=== PATIENT | female | born 1960 | race Caucasian/White ===

== ENCOUNTER 2021-05-27 21:11 | Emergency (ER) | payer BC, SELFPAY ==
[2021-05-27 21:15] VITALS: BP 124/80; PULSE 123; RESP 17; TEMP 37.2; O2SAT 98
[2021-05-28] VITALS (19 sets, daily range): BP systolic 116–128; BP diastolic 75–85; PULSE 107–115; RESP 18–25; TEMP 36.7–36.8; O2SAT 97–100
--- NOTE | 2021-05-28 01:25 | ED.NECK ---
HPI - Neck Pain/Injury History of Present Illness HPI Narrative: Neck pain for the past 2 weeks. Located in the upper cervical spine and radiating into the posterior scalp. Worse with head movement. Prevents her from sleeping. Saw her PCP and was started on antibiotics for bilateral ear infections. She denies any symptoms related to this, and her neck pain has not improved. Related Data Home Medications Medication Instructions Recorded Confirmed cetirizine 10 mg tablet 10 mg PO DAILY 10/01/19 04/15/21 Allergies Allergy/AdvReac Type Severity Reaction Status Date / Time erythromycin base Allergy Mild Rash Verified 05/28/21 00:06 nitrofurantoin Allergy Mild Rash Verified 05/28/21 00:06 tetracycline Allergy Mild Rash Verified 05/28/21 00:06 Review of Systems Review of Systems: All systems reviewed & are unremarkable except as noted in HPI and below Constitutional: Constitutional: Denies chills, Denies fever(s) and Denies weakness Eyes: Eyes: Reports no additional eye complaints ENT: Denies dizziness and Reports nasal congestion Cardiovascular: Cardiovascular: Denies chest pain Respiratory: Respiratory: Denies dyspnea Gastrointestinal: Gastrointestinal: Reports no additional gastrointestinal complaints Genitourinary: Genitourinary: Reports no additional female genitourinary complaints Neurologic: Reports headache(s), Denies numbness and Denies weakness [facility] Family History Family History Mother Patient's mother is in good health Father Patient's father is in good health Hypertension Grandparent Hypertension Social History Social History Smoking status: Current every day smoker Second hand tobacco smoke exposure: No Smoking end date: 10/21/09 Alcohol intake: current Exam Const: General: no acute distress and alert Orientation/consciousness: patient oriented x3 HENMT: Head: normal to inspection Eyes: Pupils: Equal, round and reactive pupils present EOM: EOMs intact bilaterally Neck: Neck: normal visual inspection and no lymphadenopathy Resp: Effort & Inspection: normal respiratory effort Auscultation: clear to auscultation bilaterally, no rales, no rhonchi and no wheezes Cardio: Jugular venous distension: no JVD Rate: regular rate Rhythm: regular rhythm Heart sounds: no murmurs Back/Spine/Pelvis: Cervical Spine: cervical muscular tenderness, pain with cervical ROM and No Cervical spine tenderness Skin: General skin exam: normal color Neuro: General: patient oriented x3, moves all extremities and CN's II-XI intact bilaterally Speech: normal speech Gait exam (Neuro): Normal gait present Extrem: General: no edema Psych: Appearance: well kempt Affect: normal affect Course Vital Signs Vital signs: Vital Signs Temperature 37.2 C 05/27/21 21:15 Pulse Rate 123 H 05/27/21 21:15 Respiratory Rate 17 05/27/21 21:15 Blood Pressure 124/80 05/27/21 21:15 Pulse Oximetry 98 05/27/21 21:15 Temperature 36.8 C 05/28/21 03:24 Pulse Rate 109 H 05/28/21 03:24 Respiratory Rate 18 05/28/21 03:24 Blood Pressure 116/75 05/28/21 03:24 Pulse Oximetry 98 05/28/21 03:24 MDM - Neck Pain/Injury MDM Narrative Medical decision making narrative: Pain significantly improved after treatment. Seems to be myofascial. Medical Records Attestation: I reviewed the patient's medical records. Discharge Plan Discharge Clinical Impression: Cervical muscle strain Patient Disposition: Home, Self-Care Condition: Stable Instructions: Cervical Strain (ED) Prescriptions: New diazepam [Valium] 5 mg tablet 5 mg PO BID PRN (Reason: muscle spasm) Qty: 6 RF: 0 No Action alprazolam 0.5 mg tablet 0.5 mg PO DAILY Qty: 30 RF: 0 cetirizine [Zyrtec] 10 mg tablet 10 mg PO DAILY RF: 0 ergocalciferol (vitamin D2) 1,250 mcg (50,000 unit) c
[2021-05-28] MEDS: diazePAM INJ (*CRX) 10 MG/2 ML SYRINGE 5 MG IM (01:31)
[2021-05-28] MEDS: KETOROLAC (*BKC) 60 MG/2 ML VIAL IM (01:32)
[2021-05-28] MEDS: DEXAMETHASONE SOD PHOS INJ 4 MG/ML VIAL 10 MG IM (01:32)
== END 2021-05-28 03:25 | disposition home or self-care (01) ==
PROVIDERS: Emergency Provider Emergency Medicine; PCP Physician Assistant
DX: S16.1XXA Strain of muscle, fascia and tendon at neck level, initial encounter (principal); Z87.891 Personal history of nicotine dependence; X58.XXXA Exposure to other specified factors, initial encounter
CPT/HCPCS: 96372; 99284; J1100; J1885; J3360

== ENCOUNTER → 2021-07-27 16:28 | Outpatient (CLI) | payer BC, SELFPAY ==
--- NOTE | ~2021-07-27 | MM_ITS ---
EXAMINATION: MM scrn patel implant BI w sky HISTORY: Screening mammogram TECHNIQUE: Craniocaudal and mediolateral oblique 3-D tomosynthesis images with implant displacement a nd synthetic 2-D images were generated. Craniocaudal and mediolateral oblique views of the breasts wi thout implant displacement were obtained using full field digital mammography. CAD analysis was submi tted and interpreted. COMPARISON: 06/10/2012, 01/01/2011, 08/30/2009 BREAST PARENCHYMAL COMPOSITION: The breasts are heterogeneously dense, which may obscure small masses . FINDINGS: Scattered benign-appearing calcifications are present. There is no evidence of suspicious m ass, calcification, or architectural distortion to suggest malignancy in either breast. There has bee n no suspicious interval change. IMPRESSION: 1. No mammographic evidence of malignancy. 2. Recommend routine screening mammography in one year. BI-RADS Category 2: Benign finding(s). Reviewed, dictated and finalized at location A.
== END ==
PROVIDERS: PCP Physician Assistant; Visit Provider Physician Assistant
DX: Z12.31 Encounter for screening mammogram for malignant neoplasm of breast (principal)
CPT/HCPCS: 77063; 77067

== ENCOUNTER → 2022-06-20 11:14 | Outpatient (CLI) | payer BC, SELFPAY ==
--- NOTE | ~2022-06-20 | CT_ITS ---
EXAMINATION: CT lung screening DATE: 06/20/2022 12:04 INDICATION: Hx of tobacco use TECHNIQUE: Computed tomography (CT) of the chest was performed without intravenous contrast. Addition al 3D reconstructions utilizing coronal maximum intensity projection (MIP) were performed. Automated exposure control and iterative reconstruction technique were employed. The dose-length product was 49 .21 mGy-cm. COMPARISON: None FINDINGS: Thin linear band of discoid atelectasis/scarring in the posterior left lower lobe. Slightly more laterally there is a 4 mm subpleural left lower lobe nodule. 2 mm nodule in the anterio r right lower lobe near the major fissure. 2 mm calcified nodule in the superior segment of the left lower lobe consistent with old granulomatous disease. No pneumonia, pulmonary edema, pleural effusion or pneumothorax. Heart size is normal. No pericardial effusion. Thoracic aorta is normal in caliber. No pathologically enlarged thoracic lymphadenopathy. Bilateral breast implants. Moderate thoracic sp ondylosis. IMPRESSION: 1. Lung-RADS category 2: Benign appearance or behavior. Continue annual screening with noncontrast lo w-dose chest CT in 12 months. Reviewed, dictated and finalized at location A. IMPRESSION: 1. Lung-RADS category 2: Benign appearance or behavior. Continue annual screeni ng with noncontrast low-dose chest CT in 12 months.
== END ==
PROVIDERS: PCP Physician Assistant; Visit Provider Physician Assistant
DX: Z12.2 Encounter for screening for malignant neoplasm of respiratory organs (principal); Z87.891 Personal history of nicotine dependence
CPT/HCPCS: 71271

== ENCOUNTER 2022-07-02 16:14 | Emergency (ER) | payer BC, SELFPAY ==
[2022-07-02 16:25] VITALS: BP 133/108; PULSE 94; RESP 16; TEMP 37.1; O2SAT 99
--- NOTE | 2022-07-02 16:33 | ED.SKABFB ---
HPI - Skin/Abscess/Foreign Bdy General Chief complaint: Skin/Abscess/Foreign Body Stated complaint: Left Eye Pain Time Seen by Provider: 07/02/22 16:34 Source: patient and RN notes reviewed Mode of arrival: ambulatory Limitations: no limitations History of Present Illness HPI narrative: 61-year-old female presents to the [facility] with left medial eye swelling, tenderness. Patient states its been there for couple of days and it is getting little worse. Noticed some drainage. Denies any change in vision. Denies any fevers. Has been applying ice and heat to the area No trauma to the eye. Related Data Home Medications Medication Instructions Recorded Confirmed cetirizine 10 mg tablet (Zyrtec) 10 mg PO DAILY 10/01/19 07/02/22 Allergies Allergy/AdvReac Type Severity Reaction Status Date / Time erythromycin base Allergy Mild Rash Verified 07/02/22 16:33 nitrofurantoin Allergy Mild Rash Verified 07/02/22 16:33 tetracycline Allergy Mild Rash Verified 07/02/22 16:33 Review of Systems Review of Systems: All systems reviewed & are unremarkable except as noted in HPI and below Constitutional: Constitutional: Reports no additional constitutional complaints, Denies chills and Denies fever(s) Eyes: Eyes: Reports as per HPI, Denies change in vision and Denies photophobia ENT: Reports system reviewed and no additional complaints, except as documented Cardiovascular: Cardiovascular: Reports no additional cardiovascular complaints Respiratory: Respiratory: Reports no additional respiratory complaints Gastrointestinal: Gastrointestinal: Reports no additional gastrointestinal complaints Musculoskeletal: Musculoskeletal: Reports no additional musculoskeletal complaints Integumentary/Breasts: Skin/Breast: Reports system reviewed and no additional complaints, except as docu Neurologic: Reports system reviewed and no additional complaints, except as documented Psychiatric: Psychiatric: Reports no additional psychiatric complaints Allergic/Immunologic: Allergic/Immunologic: Reports no additional allergic/immunologic complaints [facility] Family History Family History Mother Patient's mother is in good health Father Patient's father is in good health Hypertension Grandparent Hypertension Social History Social History Smoking status: Current every day smoker Second hand tobacco smoke exposure: No Smoking end date: 10/21/09 Alcohol intake: current Comments At the time of my signature, I reviewed and agree with the nursing past medical, surgical, social, and family history. There is no relevant family history pertinent to the patient complaint. Exam Const: General: healthy appearing, no acute distress and alert Nutritional Appearance: well nourished Orientation/consciousness: patient oriented x3 Limitations: no limitations HENMT: Head: normal to inspection Ears: external ears normal, TM's normal bilaterally and EAC's normal General nose exam: Normal external nose present and Normal nares present Face and sinus: normal facial exam Mouth: Yes Normal oral and palatal mucosa present, Yes lip normal and Yes moist mucous membranes Throat: posterior oropharynx normal Eyes: General: appearance normal, both eyes and all related structures Visual Parsons: normal visual parsons by confrontation Alignment and Position: alignment normal and position normal Eyelids: eyelid abnormality left upper eyelid erythema (Medial aspect, tear duct), swelling and tenderness Conjunctivae: conjunctivae normal Pupils: Equal, round and reactive pupils present Eyes/upper lids images: 1. Redness, swelling, tenderness. Green drainage noted. Collected culture. Drainage noted from tear duct. Neck: Neck: normal visual inspection, no lymphadenopathy and no meningeal signs Chest: Chest palpation & inspection: normal inspection
== END 2022-07-02 16:50 | disposition home or self-care (01) ==
PROVIDERS: Emergency Provider Nurse Practitioner; PCP Physician Assistant
DX: H04.552 Acquired stenosis of left nasolacrimal duct (principal); H04.302 Unspecified dacryocystitis of left lacrimal passage; Z87.891 Personal history of nicotine dependence
CPT/HCPCS: 87070; 87075; 87076; 87205; 99213; G0463

== ENCOUNTER 2025-01-18 08:02 | Outpatient (CLI) | payer OTHER, SELFPAY ==
--- NOTE | ~2025-01-18 | DEXA_ITS ---
Bone Density Report Name: ARVIND ANAYA Age: 64 Sex: Female Ethnicity: White Date of : 1960 Indication: postmenopausal; screening for osteoporosis; height loss; hysterectomy; Referring Provider: VENITA, DUGLAS Study: Bone densitometry was performed. Exam Date: January 18, 2025 Accession number: [id number] Bone Density: Region BMD T-score Z-score Classification AP Spine(L1-L4) 1.030 -0.2 1.7 Normal Femoral Neck (Left) 0.726 -1.1 0.5 Osteopenia Total Hip (Left) 0.859 -0.7 0.6 Normal Femoral Neck (Right) 0.712 -1.2 0.3 Osteopenia Total Hip (Right) 0.892 -0.4 0.9 Normal Total Hip Mean 0.875 -0.6 0.8 Normal World Health Organization criteria for BMD impression classify patients as: Normal (T-score at or above -1.0), Osteopenia (T-score between -1.0 and -2.5), or Osteoporosis (T-score at or below -2.5). 10-year Fracture Risk(1): Major Osteoporotic Fracture 8.7% Hip Fracture 0.8% Reported Risk Factors: [place] (), Neck BMD=0.712, BMI=25.5 (1) FRAX(R) Version 3.08. Fracture probability calculated for an untreated patient. Fracture probability may be lower if the patient has received treatment. Clinical Information Provided by Patient: Has the following medical conditions: Hysterectomy Patient maximum height was 66 Menopause Age: 33 No regular weight bearing exercise Drinks caffeinated beverages Onset of menses at age 14 Number of children 2 Impression: The patient has low bone mass, based on the Right Femoral Neck T-score. The patient has an estimated ten-year risk of hip fracture of 0.8% and an estimated ten-year risk of major fracture of 8.7%, based on the WHO FRAX algorithm. Discussion: BONE DENSITY IS LOW AT ONE OR MORE SKELETAL SITES. This patient's lowest T-score is low at one or more skeletal sites. It meets the World Health Organization's (WHO) criteria for ?low bone mass? (T-score between -1.0 and -2.5). The patient's 10-year risk of fracture as calculated by FRAX is less than the threshold where pharmacological therapy is recommended by the National Osteoporosis Foundation (NOF). However, all treatment decisions require clinical judgment and consideration of individual patient factors, including patient preferences, comorbidities, previous drug use, risk factors not captured in the FRAX model (e.g., frailty, falls, vitamin D deficiency, increased bone turnover, interval significant decline in bone density) and possible under or overestimation of fracture risk by FRAX. The patient should follow a healthful lifestyle (good nutrition with adequate calcium and vitamin D, and appropriate weight-bearing exercise). Follow-Up: Consider repeating this study in 2 to 3 years to reassess this patient's status, or sooner if there is some new clinical indication. Reported by: VANDANA on 01/18/2025 8:42:00 AM. Reviewed, dictated and finalized at location [facility]
--- NOTE | ~2025-01-18 | MM_ITS ---
EXAMINATION: MM scrn patel implant BI w sky HISTORY: Screening mammogram TECHNIQUE: Craniocaudal and mediolateral oblique 3-D tomosynthesis images with implant displacement a nd synthetic 2-D images were generated. Craniocaudal and mediolateral oblique views of the breasts wi thout implant displacement were obtained using full field digital mammography. CAD analysis was submi tted and interpreted. COMPARISON: 07/27/2021 BREAST PARENCHYMAL COMPOSITION: Dense: The breasts are heterogeneously dense, which may obscure small masses FINDINGS: Stable clustered benign-appearing right breast calcifications lower inner quadrant, likely skin calcifications. There is no evidence of suspicious mass, calcification, or architectural distort ion to suggest malignancy in either breast. There has been no suspicious interval change. IMPRESSION: 1. No mammographic evidence of malignancy. 2. Recommend routine screening mammography in one year. BI-RADS Category 2: Benign finding(s). Reviewed, dictated and finalized at location A.
--- OUTSIDE RECORDS SUMMARY | 2025-01-18 08:09 | XMS_ITS | Encounter Summary ---
Author Organization [facility] Healthcare Address [address] [place] [id number] Care Team Providers Care Vp Purchasing Name Role Phone Prerna Tan Primary Care Provider [phone]- [phone] Reason for Visit * Reason Onset Date Comments Dizziness 11/18/2024 Encounter Details Date Type Department Care Team (Late st Contact Info) Description 11/18/2024 Nurse Triage [facility] Medical Group Family Medicine [address] [place] [address] Prerna Tan PA [address] [place] [address] Social History Tobacco Use Types Packs/Day Years Used Date Smoking Tobacco: Every Day Cigarettes 0.4 1 Smokeless Tobacco: Never AUDIT-C Answer Date Recorded Q1: How often do you have a drink containing alc ohol? Monthly or less 05/16/2023 Q2: How many drinks containi ng alcohol do you have on a typical day when you are drinking? 1 or 2 05/16/2023 Q3: How often do you have si x or more drinks on one occasion? Less than monthly 05/16/2023 PHQ-2 Answer Date Recorded PHQ-2 Total Score (If total score is 3 or more points, staff should administer the PHQ-9) 0 07/01/2024 PHQ-9 Answer Date Recorded PHQ-9 Total Score 13 02/05/2024 Comments Unknown Sex and Gender Information Value Date Recorded Sex Assigned at Not on file Legal Sex Female 12:21 AM SERVICES EXECUTIVE Gender Identity Not on file Sexual Orientation Not on file documented as of this encounter Miscellaneous Notes * Telephone Encounter - Nadege Penny LPN - 11/18/2024 1:55 PM SERVICES EXECUTIVE Called and spoke to pt. Pt stated that she has been out of Cymbalta 30mg for 2-3 weeks because she had not received notification from the pharmacy that it was filled. She stated she has still been taking the 60mg but she is almost out. Refill of both doses sent. Advised pt that if she is almost outto either call pharmacy or PCP office as the Cymbalta is a medication that needs tapered and she clifford that dosage because the 60mg by itself was not effective. Pt voiced understanding. Informed pt that both medications were sent to the pharmacy and she can contact them for tile picker. Pt is already rescheduled and understands that symptoms are most like from missing Cymbalta doses. ICES EXECUTIVE * Telephone Encounter - Sheyla Lopez RN - 11/18/2024 8:14 AM SERVICES EXECUTIVE Reason for Disposition Lightheadedness (dizziness) present now, after 2 hours of rest and fluids Protocols used: [id number] Pt reports vertigo today. She had vertigo for 6 days then none yesterday and vertigo returned today. She also reports some sinus congestion. She denies dyspnea, headache, weakness, numbness. Pt reports she takes meclizine tid with no relief. Pt has been out of her Cymbalta 30 mg for 2-3 weeks. Per chart scrip sent 10/19. Advised pt of Kayce maneuver. Disposition per guideline: Care advice/education/call back instruction given: appt made first available (12/28/24) please advise pt if any sooner appts or cancellations, further advice Call back # [phone] (mobile) Encounter routed to PCP ICES EXECUTIVE * Telephone Encounter - Sheyla Lopez RN - 11/18/2024 8:03 AM SERVICES EXECUTIVE Regarding: vertigo ----- Message from Araseli Jackson sent at 11/18/2024 8:03 AM SERVICES EXECUTIVE ----- Symptom Based Call Chief Complaint(s): vertigo Duration: this morning What type of symptom(s) is the patient experiencing? Red Flag. Is the patient concerned they are experiencing a medical emergency requiring an ambulance? No Additional Comments: Patient has been taking meclizine. Does message need to be routed? Yes-Action Needed ICES EXECUTIVE documented in this encounter Plan of Treatment Not on file documented as of this encounter Visit Diagnoses Not on filedocumented in this encounter Care Teams Vp Purchasing Relationship Specialty Start Date End Date Prerna Tan PA [address] [address] PCP - General Internal Medicine 05/24/21 documented as of this encounter
--- OUTSIDE RECORDS SUMMARY | 2025-01-18 08:09 | XMS_ITS | Clinical Summary ---
Author Organization [facility] Address [address] [facility] [place] [address] Care Team Providers Care Carpenters Supervisor Name Role Phone Jesse Chairez DO Primary Care Provider Source Comments [facility],non-owned Affiliates and Associated Physician Practices is amultiple site organization consisting of ambulatory clinics and hospital sitesin [place], [place], [place] and [place]. This disclosure is being madepursuant to the Care Everywhere program and may not contain all information available regarding this patient. Last updated 18.[facility] Allergies Active Allergy Reactions Criticality Noted Date Comments Erythromycin Rash Low 12/19/2011 Tetracycline Rash Low 12/19/2011 Medications * Be aware that medications may not be up to date on this document. Alwaysverify current medications with the patient. Medication Sig Dispensed Refills Start Date End Date Status ALPRAZolam (XANAX) 0.5 MG tablet Take 0.5 mg by mouth 3 times daily as needed. Active estradiol (ESTRACE) 1 MG tablet Take 1 mg by mouth once daily. Active buPROPion XL 24hr (WELLBUTRIN-XL) 300 MG tablet Take 300 mg by mouth every morning. Active omeprazole (PRILOSEC) 20 MG capsule Take 20 mg by mouth daily before breakfast. Active B Complex Vitamins (VITAMIN B COMPLEX PO) Take 1 Tab by mouth once daily. Active pentosan polysulfate sodium (ELMIRON) 100 MG capsule Take 1 Cap by mouth 3 times daily. Take two every morning and take one every evening. 90 Cap 2 12/25/2011 Active Additional Information Patient not taking.Reported on 02/17/2019 phenazopyridine (PYRIDIUM) 100 MG tablet Take 1 Tab by mouth 3 times daily with meals. 90 Tab 2 12/25/2011 Active Additional Information Patient not taking.Reported on 02/17/2019 Active Problems No known active problems Family History Medical History Relation Name Comments CAD (Coronary Artery Disease) Paternal Grandfather Relation Name Status Comments Paternal Grandfather Social History Tobacco Use Types Packs/Day Years Used Date Smoking Tobacco: Former Cigarettes Q uit: 10/30/2009 Smokeless Tobacco: Never Tobacco Cessation:Counseling Given: No Alcohol Use Standard Drinks/Week Comments Yes 0 (1 standard drink = 0.6 oz pur e alcohol) socially Sex and Gender Information Value Date Recorded Sex Assigned at Not on file Gender Identity Not on file Sexual Orientation Not on file Last Filed Vital Signs Vital Sign Reading Time Taken Comments Blood Pressure 125/86 02/17/2019 10:03 AM CDT Pulse 80 02/17/2019 10:03 AM CDT Temperature 36.3 C (97.3 F) 02/17/2019 10:03 AM CDT Respiratory Rate 16 02/17/2019 10:0 3 AM CDT Oxygen Saturation 99% 02/17/2019 10: 03 AM CDT Inhaled Oxygen Concentration - - Weight 72.9 kg (160 lb 12.8 oz) 019 10:03 AM CDT Height 167.6 cm (5' 6 ) 02/17/2019 10:0 3 AM CDT Body Mass Index 25.95 02/17/2019 10:03 AM CDT Plan of Treatment Health Maintenance Due Date Last Done Comments BONE DENSITY TESTING 1960 COLOGUARD (AGES 45-75) - COL ON CA SCREENING 1958 COLON MONITORING 1958 COLONOSCOPY - COLON CA SCREENING 1958 CT COLONOGRAPHY - COLON CA SCREENING 1958 Colorectal Cancer Screening 1958 FIT - COLON CA SCREENING 1958 FLEX SIG - COLON CA SCREENING 1958 LIPID TESTING 1958 MAMMOGRAM 1958 HEPATITIS C SCREENING 09/14/1976 DTAP/TDAP/TD VACCINES (1 - Tdap) 1977 PNEUMOCOCCAL VACCINE 50+ (1 of 1 - PCV) 2008 ZOSTER VACCINE (1 of 2) 2008 SCREENING FOR DIABETES 02/17/2019 COVID-19 VACCINE (1 - 2023-2 5 season) 2024 INFLUENZA VACCINE (#1) 2024 DEPRESSION SCREENING 10/21/2024 Respiratory Syncytial Virus (RSV) Vaccine Pt: or over 60 yrs (1 - 1-dose 75+ series) 2033 HEPATITIS B VACCINE Aged Out No longe r eligible based on patient's age to complete this topic HIB VACCINE Aged Out No longer eligi ble based on patient's age to complete this topic HPV VACCINE Aged Out No longer eligi ble based on patient's age to complete this topic MENINGOCOCCAL (Group B) VACC INE SHARED DECISION-MAKING Aged Out No longer eligibl e based on patient's age to complete this topic MENINGOCOCCAL GROUPS A/C/Y/W VACCINE Aged Out No longer eligible b ased on patient's age to complete this topic Care Teams Carpenters Supervisor Relationship Specialty Start Date End Date Jesse Chairez DO [address] [facility] [address] [place] [address] PCP - General 02/03/19
--- OUTSIDE RECORDS SUMMARY | 2025-01-18 08:09 | XMS_ITS | Referral Summary ---
Author Organization [facility] [address] [place] [address] [place] [phone] Care Team Providers Care Corporate Staff Accountant Name Role Phone Prerna Tan Primary Care Provider [phone]- [phone] Encounters Date Type Department Care Team Description 01/15/2025 7:30 AM CDT Office Visit [address] [place] [phone] Prerna Tan PA BMI 25.0-25.9,adult (Primary Dx); Anxiety; Chronic obstructive pulmonary disease, unspecified COPD type (HCC); Foot pain, right 12/21/2024 Orders Only [address] [place] [phone] Prerna Tan PA 12/18/2024 Orders Only [address] [place] [phone] Prerna Tan PA CHONG (dyspnea on exertion) (Primary Dx) 12/11/[address] [place] [phone] Prerna Tan PA Medical Question/Miscellaneou s 11/18/[address] [place] [phone] Prerna Tan PA 11/18/2024 Telephone [facility] [address] [place] [phone] Prerna Tan PA 11/18/2024 Nurse Triage [facility] [address] [place] [phone] Prerna Tan PA from Last 3 Months Allergies Active Allergy Reactions Criticality Noted Date Comments Erythromycin Rash Medium 12/19/2011 Tetracaine Hcl Unknown 05/24/2021 Tetracycline Rash Medium 12/19/2011 Medications loratadine (CLARITIN) 10 mg tablet 1 tablet (10 mg total) daily Active montelukast (SINGULAIR) 10 mg tablet Take 1 tablet (10 mg total) by mouth nightly 90 tablet 1 07/01/20 24 Active Additional Information Patient not taking.Reported on 01/15/2025 valACYclovir (VALTREX) 1 gram tablet Take 2 tabs (2000 mg) 2 times a days for 1 day. 30 tablet 1 07/01/20 24 Active ALPRAZolam (XANAX) 0.25 mg tablet Take 1 tablet (0.25 mg total) by mouth nightly as needed for anxiety 15 tablet 07/01/20 24 Active meclizine (ANTIVERT) 12.5 mg tabletIndicati ons:Vertigo Take 1 tablet (12.5 mg total) by mouth 3 (three) times a day as needed for dizziness 60 tablet 08/14/[address] (CYMBALTA) 60 mg capsuleIndicat ions:Anxiety Take ONE 60mg tab with ONE 30mg tab to make 90mg daily. 90 capsule 1 01/16/[address] (CYMBALTA) 30 mg capsuleIndicat ions:Anxiety with Depression Take ONE 30mg tab with ONE 60mg tab for a total of 90mg daily. 90 capsule 1 01/16/20 25 Active rosuvastatin (CRESTOR) 10 mg tablet Take 1 tablet (10 mg total) by mouth daily 90 tablet 2 01/16/20 25 Active ARIPiprazole (ABILIFY) 5 mg tabletIndicati ons:Anxiety Take 1 tablet (5 mg total) by mouth daily 90 tablet 1 01/16/20 25 Active budesonide-gly copyr-formoter ol (BREZTRI) 160-9-4.8 mcg/actuation inhalerIndicat ions:Chronic obstructive pulmonary disease, unspecified COPD type (HCC) Inhale 2 puffs 2 (two) times a day 5.9 g 1 01/16/20 25 Active omeprazole (PriLOSEC) 20 mg capsule Take 1 capsule (20 mg total) by mouth daily before breakfast 90 capsule 1 01/16/20 25 Active omeprazole (PriLOSEC) 20 mg capsule Take 1 capsule (20 mg total) by mouth daily before breakfast 90 capsule 1 02/05/20 24 025 Discontinued(R eorder) ARIPiprazole (ABILIFY) 5 mg tabletIndicati ons:Anxiety Take 1 tablet (5 mg total) by mouth daily 90 tablet 1 07/01/20 24 025 Discontinued(R eorder) albuterol-bude sonide (Airsupra) 90-80 mcg/actuation HFA aerosol inhaler Inhale 2 puffs every 4 (four) hours as needed (as needed for wheezing) 10.7 g 07/05/20 24 025 Discontinued budesonide-gly copyr-formoter ol (BREZTRI) 160-9-4.8 mcg/actuation inhalerIndicat ions:Chronic obstructive pulmonary disease, unspecified COPD type (HCC) Inhale 2 puffs 2 (two) times a day 5.9 g 1 08/14/20 24 025 Discontinued(R eorder) DULoxetine DR (CYMBALTA) 60 mg capsuleIndicat ions:Anxiety Take ONE 60mg tab with ONE 30mg tab to make 90mg daily. 90 capsule 1 11/18/19 025 Discontinued(R eorder) DULoxetine DR (CYMBALTA) 30 mg capsuleIndicat ions:Anxiety with Depression Take ONE 30mg tab with ONE 60mg tab for a total of 90mg daily. 90 capsule 1 11/18/19 25 025 Discontinued(R eorder) rosuvastatin (CRESTOR) 10 mg tablet 12/08/19 25 03/28/2 025 Discontinued(R eorder) Active Problems Problem Noted Date Diagnosed Date BMI 25.0-25.9,adult 01/15/2025 Assessment & Plan (01/15/2025 7:39 AM CDT): BMI Follow-up includes: Discussed diet and exercising counseling. Need for vaccination 07/05/2024 Assessment & Plan (07/05/2024 9:21 PM CDT): Pneumonia vaccine updated in the office today Annual physical exam 07/05/2024 Assessment & Plan (07/05/2024 9:22 PM CDT): Encouraged healthy lifestyle, good nutrition and exercise. Encouraged Calcium and Vitamin D and weight bearing exercise for bone health. Reviewed immunizations Reviewed age appropirate screenings. Reactive airway disease 07/05/2024 Assessment & Plan (07/05/2024 9:15 PM CDT): This is a significant, separately identifiable problem that was evaluated and managed on the same day as the wellness exam Patient has increased cough and congestion/COPD type symptoms as she has increased allergy symptoms. Continue with Mucinex antihistamine Flonase. Add Singulair and air supra. Sample of air supra provided if she would start to note increased color in the congestion and production of cough she is to call for possible antibiotic Menopause 02/18/2024 Assessment & Plan (02/18/2024 10:04 PM CDT): Check DEXA Colon cancer screening 02/18/2024 Assessment & Plan (07/05/2024 9:21 PM CDT): Patient is scheduled for screening colonoscopy in September of [address] Anderson Assessment & Plan (02/18/2024 10:07 PM CDT): Discussed colon cancer screening options. Last colonoscopy was in July of [address] Gonzales. She is due to repeat would prefer to have it done by Dr. Anderson. Referral be placed Mixed hyperlipidemia 05/18/2023 Assessment & Plan (07/05/2024 9:20 PM CDT): Encouraged patient to follow low fat/low chol diet like the Mediterranean diet. Increase good fats in the diet. Increase exercise. Monitor labs as needed. Assessment & Plan (02/18/2024 10:04 PM CDT): Encouraged patient to follow low fat/low chol diet like the Mediterranean diet. Increase good fats in the diet. Increase exercise. Monitor labs as needed. Assessment & Plan (05/18/2023 8:09 PM CDT): Encouraged patient to follow low fat/low chol diet like the Mediterranean diet. Increase good fats in the diet. Increase exercise. Monitor labs as needed. Cigarette smoker 04/20/2023 Assessment & Plan (07/05/2024 9:18 PM CDT): Encouraged smoking cessation. Discussed 3 minutes. Reviewed options for assistance with cessation. 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 Pt declines assistance at this time but may contact the office at anytime for further help as they desire. Assessment & Plan (02/18/2024 10:01 PM CDT): Encouraged smoking cessation. Discussed 3 minutes. Reviewed options for assistance with cessation. Reviewed retirement sequela associated with smoking. Pt declines assistance at this time but may contact the office at anytime for further help as they desire. Patient is past due for her low-dose CT. Will place the order Discussed with patient Lung Cancer screening options with the patient. Encouraged LowDose CT Patient is between 53 - 75 yo. Is a current smoker or quit in the last 15 years. Has a 30+pack years smoking history. Is currently without any signs or symptoms of lung cancer. Is willing to consider curative lung surgery if needed. G0296 Assessment & Plan (05/18/2023 8:09 PM CDT): Encouraged smoking cessation. Discussed 3 minutes. Reviewed options for assistance with cessation. Reviewed retirement sequela associated with smoking. Pt declines assistance at this time but may contact the office at anytime for further help as they desire. Assessment & Plan (04/20/2023 12:03 AM CDT): Encouraged smoking cessation. Discussed 3 minutes. Reviewed options for assistance with cessation. Reviewed retirement sequela associated with smoking. Pt declines assistance at this time but may contact the office at anytime for further help as they desire. Low-dose CT due after 06/20 Bilateral foot pain 04/20/2023 Assessment & Plan (02/18/2024 10:03 PM CDT): Persistent bilateral foot pain. Has had multiple surgeries to her foot. She is concerned it may be neuropathic pain but I am concerned it is more mechanical. Will make a referral to Dr. Abarca and Michele for further evaluation. If they clear it may further workup neuropathic pain but on exam with microfilament she has full sensation through all of her feet and toes. Assessment & Plan (04/20/2023 12:04 AM CDT): Patient is experiencing bilateral foot pain. Has had multiple surgeries and noting increased pain with walking. She is ready to see a surgeon for an additional opinion. Will make referral to ankle addictions recovery specialist Anxiety 04/20/2023 Assessment & Plan (07/05/2024 9:21 PM CDT): Symptoms stable with Cymbalta 90 and Abilify 5 Assessment & Plan (04/12/2024 9:37 PM CDT): Patient has having breakthrough symptoms. Has tolerated the Cymbalta 60 Abilify 5 without problems. Will add Cymbalta 30 mg for a total of 90 daily. Follow-up in 6-8 weeks to reassess or sooner for any other problems or concerns Assessment & Plan (02/18/2024 10:04 PM CDT): This is a significant, separately identifiable problem that was evaluated and managed on the same day as the wellness exam Persistent anxiety symptoms. She continues to have increased stressors at work. Taking 0.25 of Xanax HS to sleep. Continue Cymbalta 60. Will add Abilify 5 mg. Reviewed risks benefits alternatives side effects and proper use. Follow-up in 4-6 weeks to reassess or sooner for any other problems or concerns Assessment & Plan (05/18/2023 8:10 PM CDT): Patient sees significant improvement with the Cymbalta. She just increase to the 60. She is tolerating without side effects. Follow-up in the couple of months to reassess. If she is any problems or concerns she is to call sooner Assessment & Plan (04/20/2023 12:06 AM CDT): This is a significant, separately identifiable problem that was evaluated and managed on the same day as the wellness exam Patient has ongoing anxiety. Has used Xanax p.r.n. in the past but has daily symptoms. Discussed preventive medications including their risks benefits alternatives side effects and proper use. He is having a lot of chronic pain with her feet so agreed upon starting Cymbalta 30 mg 1 daily. Will have her follow-up in 4 weeks to reassess and increase at that time if tolerating well. Vitamin D deficiency 08/20/2021 Assessment & Plan (02/18/2024 9:50 PM CDT): Supplement Assessment & Plan (04/20/2023 12:02 AM CDT): Continue supplementation Assessment & Plan (04/15/2022 8:58 PM CDT): supplement Assessment & Plan (08/20/2021 7:07 PM CDT): supplement Breast cancer screening by mammogram 05/28/2021 Assessment & Plan (07/05/2024 9:18 PM CDT): Mammogram scheduled this month at [facility]. Patient has order Assessment & Plan (02/18/2024 10:00 PM CDT): Mammogram order provided Assessment & Plan (04/15/2022 8:57 PM CDT): Mammogram order provided Assessment & Plan (05/28/2021 9:54 PM CDT): Mammogram order provided Gastroesophageal reflux disease without esophagi tis 05/28/2021 Assessment & Plan (07/05/2024 9:18 PM CDT): Continue omeprazole as needed Assessment & Plan (02/18/2024 10:00 PM CDT): Discussed GERD at length including anatomy, behavioral changes (anti-reflux maneuvers, avoid acidic foods like oranges and tomatoes., avoidance of spicy foods, avoid eating 3-4 hours before bed, elevation of the head of the bed), weight loss and medication options for treatment. Followup if sxs worsen or has hematochezia or hematemeis. Continue omeprazole Assessment & Plan (04/15/2022 8:57 PM CDT): Continue PPI Assessment & Plan (08/20/2021 7:02 PM CDT): Continue omeprazole Assessment & Plan (05/28/2021 9:55 PM CDT): Continue PPI Seasonal allergies 05/28/2021 Assessment & Plan (04/15/2022 8:57 PM CDT): Continue claritin prn Grief 05/28/2021 Assessment & Plan (05/28/2021 10:00 PM CDT): Discussed grief and the steps of grief. She declines medication at this point. Discussed counseling. She may consider. States she has good days and bad days and wants to see if things improve with bp treatment and or if labs show much. Call if has increased sxs or if she gets stuck Tension type headache 05/28/2021 Assessment & Plan (05/28/2021 10:01 PM CDT): Patient has tension MCCAIN type sxs but could also be related to bp. Will treat bp. Try flexeril hs to see if helps with sleep/muscular neck tightness and followup in a few weeks to reassess Resolved Problems Problem Noted Date Diagnosed Date Resolved Date BMI 23.0-23.9, adult 07/01/2024 025 Assessment & Plan (07/01/2024 8:59 AM CDT): Weight/BMI is in healthy range. Continue healthy lifestyle to maintain. Welcome to Medicare preventive visit 02/18/2024 07/05/2024 Assessment & Plan (02/18/2024 10:04 PM CDT): Encouraged healthy lifestyle, good nutrition and exercise. Encouraged Calcium and Vitamin D and weight bearing exercise for bone health. Reviewed immunizations. Reviewed age appropirate screenings. Medicare Wellness Documentation is completed within the chart Need for vaccination for Strep pneumoniae 02/18/2024 07/05/2024 Assessment & Plan (02/18/2024 10:04 PM CDT): Pneumonia vaccine updated in the office today BMI 24.0-24.9, adult 02/05/2024 024 Assessment & Plan (04/12/2024 9:37 PM CDT): Weight/BMI is in healthy range. Continue healthy lifestyle to maintain. Assessment & Plan (02/05/2024 7:49 AM CDT): Discussed the patient's BMI. The BMI is above average. BMI management plan is completed. BMI Follow-up includes: nutrition counseling, exercise counseling and education provided. BMI 21.0-21.9, adult 05/16/2023 024 Assessment & Plan (05/16/2023 11:25 AM CDT): Weight/BMI is in healthy range. Continue healthy lifestyle to maintain. Lipid screening 04/20/2023 05/18/2023 Assessment & Plan (04/20/2023 12:02 AM CDT): Check labs Diabetes mellitus screening 04/20/2023 05/18/2023 Assessment & Plan (04/20/2023 12:03 AM CDT): Check labs BMI 21.0-21.9, adult 04/11/2023 023 Assessment & Plan (04/11/2023 1:39 PM CDT): Weight/BMI is in healthy range. Continue healthy lifestyle to maintain. Annual physical exam 04/09/2022 023 Assessment & Plan (04/20/2023 12:04 AM CDT): Encouraged healthy lifestyle, good nutrition and exercise. Encouraged Calcium and Vitamin D and weight bearing exercise for bone health. Reviewed immunizations Reviewed age appropirate screenings. Assessment & Plan (04/15/2022 8:58 PM CDT): Encouraged healthy lifestyle, good nutrition and exercise. Encouraged Calcium and Vitamin D and weight bearing exercise for bone health. Reviewed immunizations Reviewed age appropirate screenings. Pain in both feet 10/20/2021 02/18/2024 Assessment & Plan (10/20/2021 10:51 AM VEHICLE SALES PROFESSIONAL): Patient has tenderness that seems to be on the ball of the feet bilaterally under the 2nd to 3rd metatarsals. Will start with x-rays to rule out any type of fracture. Suspect neuroma but is unusual that it would be bilateral. Will refer to clinical specialist for further evaluation. Discussed use of mole skin cut out like a doughnut to allow for cushion and more comfort. Need for immunization against influenza 10/20/2021 04/09/2022 Assessment & Plan (10/20/2021 10:51 AM VEHICLE SALES PROFESSIONAL): Flu vaccine updated in office today BMI 21.0-21.9, adult 10/04/2021 023 Assessment & Plan (10/04/2021 1:54 PM VEHICLE SALES PROFESSIONAL): Weight/BMI is in healthy range. Continue healthy lifestyle to maintain. BMI 23.0-23.9, adult 07/06/2021 021 Assessment & Plan (07/06/2021 11:29 AM CDT): Weight/BMI is in healthy range. Continue healthy lifestyle to maintain. Right ear pain 06/11/2021 04/09/2022 Assessment & Plan (06/11/2021 7:19 PM CDT): Early otitis? Amoxil and tramadol. Keep ears dry. Start antihistamine (Claritin OR Zyrtec), Mucinex 12hour and Steroid nasal spray (Flonase). Push fluids. Rest. Supportive care. If sxs worsen or don\'t improve, pt is to followup in the office. Followup if sxs worsen or don't resolve. BMI 24.0-24.9, adult 06/02/2021 021 Assessment & Plan (06/02/2021 10:45 AM CDT): Weight/BMI is in healthy range. Continue healthy lifestyle to maintain. Essential hypertension 05/28/202107/05 Assessment & Plan (04/20/2023 12:03 AM CDT): Bp is stable/in acceptable range for any co-morbidities. Encouraged to limit sodium intake and exercise for weight control. Blood pressure is elevated today this is her 1st reading with elevation so will monitor again at her next visit. She was very worked up today with obvious high anxiety. Assessment & Plan (04/15/2022 8:57 PM CDT): Bp is stable/in acceptable range for any co-morbidities. Encouraged to limit sodium intake and exercise for weight control. Currently managed without medication after weight loss Assessment & Plan (08/20/2021 7:02 PM CDT): Bp is stable/in acceptable range for any co-morbidities. Encouraged to limit sodium intake and exercise for weight control. . Her reading is upper normal. Will continue to monitor but if remains 140/90 will need to restart the lisinopril. Assessment & Plan (05/28/2021 9:53 PM CDT): New dx. Encouraged to limit sodium intake and exercise for weight control. Start Lisinopril. Reviewed risks, benefit, alternatives, side effects and proper use. F.u 1 week to reassess bp Lipid screening 05/28/2021 04/09/2022 Assessment & Plan (05/28/2021 9:54 PM CDT): Check labs Diabetes mellitus screening 05/28/2021 08/20/2021 Assessment & Plan (05/28/2021 9:54 PM CDT): Check labs Fatigue 05/28/2021 08/20/2021 Assessment & Plan (05/28/2021 9:54 PM CDT): Probably multifactorial. Check labs and followup to re-evaluate Acute swimmer's ear of both sides 05/28/2021 04/09/2022 Assessment & Plan (05/28/2021 9:58 PM CDT): Stop using qtips. Cortisporin otic (B) x 5-7 days. BMI 25.0-25.9,adult 05/24/2021 06/02/20 Assessment & Plan (05/24/2021 12:12 PM CDT): Weight/BMI is in healthy range. Continue healthy lifestyle to maintain. Cigarette smoker 05/24/2021 04/11/2023 Assessment & Plan (04/15/2022 8:51 PM CDT): Encouraged smoking cessation. Discussed 3 minutes. Reviewed options for assistance with cessation. Reviewed retirement sequela associated with smoking. Pt declines assistance at this time but may contact the office at anytime for further help as they desire. Assessment & Plan (08/20/2021 7:06 PM CDT): Encouraged smoking cessation. Discussed 3 minutes. Reviewed options for assistance with cessation. 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 Pt declines assistance at this time but may contact the office at anytime for further help as they desire. Discussed with patient Lung Cancer screening options with the patient. Encouraged LowDose CT Patient is between 55 - 75 yo. Is a current smoker or quit in the last 15 years. Has a 30+pack years smoking history. Is currently without any signs or symptoms of lung cancer. Is willing to consider curative lung surgery if needed. [id number] Assessment & Plan (06/11/2021 7:20 PM CDT): Encouraged smoking cessation. Discussed 3 minutes. Reviewed options for assistance with cessation. Reviewed retirement sequela associated with smoking. Pt declines assistance at this time but may contact the office at anytime for further help as they desire. Assessment & Plan (05/28/2021 9:54 PM CDT): Encouraged smoking cessation. Discussed 3 minutes. Reviewed options for assistance with cessation. Reviewed retirement sequela associated with smoking. Pt declines assistance at this time but may contact the office at anytime for further help as they desire. Immunizations Immunization Administration Dates Next Due Influenza, Quadrivalent, Spl it, Preservative Free, Intramuscular 10/04/2021 Influenza, Trivalent, Preser vative Free, Intramuscular 07/25/2017 Influenza, Unspecified 10/21/2024(Deferr ed: Patient Refused),10/21/2023(Deferred: Patient Refused),11/21/2022(Deferred: Patient Refused),11/21/2021(Deferred: Patient Refused),10/21/2020(Deferred: Patient Refused) [employer]) SARS-CoV-2 Vaccination 04/29/2021 Pneumococcal Conjugate Pcv20 07/01/2024 Tdap 03/21/2021 Social History Tobacco Use Types Packs/Day Years Used Date Smoking Tobacco: Former Cigarettes 0.4 1 Q uit: 2013 Smokeless Tobacco: Never Tobacco Cessation:Counseling Given: Not Answered AUDIT-C Answer Date Recorded Q1: How often [...] points, staff should administer the PHQ-9) 0 01/15/2025 PHQ-9 Answer Date Recorded PHQ-9 Total Score 13 02/05/2024 Comments Unknown Sex and Gender Information Value Date Recorded Sex Assigned at Not on file Legal Sex Female 12:21 AM VEHICLE SALES PROFESSIONAL Gender Identity Not on file Sexual Orientation Not on file Last Filed Vital Signs Vital Sign Reading Time Taken Comments Blood Pressure 108/80 01/15/2025 7:35 AM CDT Pulse 77 01/15/2025 7:35 AM CDT Temperature 36.5 C (97.7 F) 01/15/2025 7:35 AM CDT Respiratory Rate 18 11/14/2023 9:52 AM VEHICLE SALES PROFESSIONAL Oxygen Saturation 97% 01/15/2025 7:35 AM CDT Inhaled Oxygen Concentration - - Weight 70.1 kg (154 lb 9.6 oz) 01/15/2025 7:35 A M CDT Height 165.1 cm (5' 5 ) 01/15/2025 7:35 AM CDT Body Mass Index 25.73 01/15/2025 7:35 AM CDT Plan of Treatment Not on file Procedures Procedure Name Priority Date/Time Associated Diagnosis Comments CT LUNG CANCER SCREENING Schedule Routine, Read Routine (OP Routine) 06/20/2022 Cigarette smoker SCREENING MAMMOGRAM BILATERAL W ARTEMIO Schedule Routine, Read Routine (OP Routine) 07/28/2021 Breast cancer screening by mammogram HM COLONOSCOPY Routine 07/23/2014 from Last 3 Months or Most Recently Relevant to Health Maintenance Results * CT Lung Cancer Screening (06/20/2022) Anatomical Region Laterality Modality Chest N/A Computed Tomogra phy [facility]rna [place] [facility] [facility] PROCEDURES Final Re sult * Screening Mammogram Bilateral W Artemio (07/28/2021) Anatomical Region Laterality Modality Breast Bilateral Mammography Impressions 07/28/2021 BI-RADS Category 2: Benign Findings Routine screening mammography us Prerna [place] [facility] MAMMO PROCEDURES Final Result * HM COLONOSCOPY (07/23/2014) Historical Provider HEALTH MAINTENANCE Final Result from Last 3 Months or Most Recently Relevant to Health Maintenance Insurance [employer] [place] [phone] [place] [address] Care Teams Corporate Staff Accountant Relationship Specialty Start Date End Date Prerna Tan PA [address] [place], [place] [id number] PCP - General Internal Medicine 05/24/21
--- OUTSIDE RECORDS SUMMARY | 2025-01-18 08:09 | XMS_ITS | Clinical Summary ---
Author Organization [facility] [address] [facility], [place] Address [address] [place] [address] Care Team Providers Care Hot Saw Helper Name Role Phone Prerna Tan Primary Care Provider [phone] Allergies Active Allergy Reactions Criticality Noted Date [...] to make 90mg daily. 90 capsule 1 01/ 025 Discontinued(R eorder) DULoxetine (CYMBALTA) 30 mg capsuleIndicat ions:Anxiety with Depression Take ONE 30mg tab with ONE 60mg tab for a total of 90mg daily. 90 capsule 1 11/18/19 25 025 Discontinued(R eorder) rosuvastatin (CRESTOR) 10 mg tablet 12/08/19 25 025 Discontinued(R eorder) Active Problems Problem Noted [...] Reviewed options for assistance with cessation. Reviewed long-term sequela associated with smoking. Pt declines assistance at this time but may contact the office at anytime for further help as they desire. Assessment & Plan (02/18/2024 10:01 PM CDT): Encouraged smoking cessation. Discussed 3 minutes. Reviewed options for assistance with cessation. Reviewed long-term sequela associated with smoking. Pt declines assistance [...] Reviewed options for assistance with cessation. 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 Pt declines assistance at this time but may contact the office at anytime for further help as they desire. Assessment & Plan (04/20/2023 12:03 AM CDT): Encouraged smoking cessation. Discussed 3 minutes. Reviewed options for assistance with cessation. Reviewed long-term sequela associated with smoking. Pt declines assistance [...] additional opinion. Will make referral to ankle mobile security specialist Anxiety 04/20/2023 Assessment & Plan (07/05/2024 [...] PM CDT): Mammogram scheduled this month at [facility]. Patient has order Assessment & Plan (02/18/2024 [...] 02/18/2024 Assessment & Plan (10/20/2021 10:51 AM ROTOGRAVURE PRESS OPERATOR): Patient has tenderness that seems to be on the ball of the feet bilaterally under the 2nd to 3rd metatarsals. Will start with x-rays to rule out any type of fracture. Suspect neuroma but is unusual that it would be bilateral. Will refer to reservations specialist for further evaluation. Discussed use of mole skin cut out like a doughnut to allow for cushion and more comfort. Need for immunization against influenza 10/20/2021 04/09/2022 Assessment & Plan (10/20/2021 10:51 AM ROTOGRAVURE PRESS OPERATOR): Flu vaccine updated in office today BMI 21.0-21.9, adult 10/04/2021 023 Assessment & Plan (10/04/2021 1:54 PM ROTOGRAVURE PRESS OPERATOR): Weight/BMI is in healthy range. Continue healthy [...] x 5-7 days. BMI 25.0-25.9,adult 05/24/2021 06/02/20 21 Assessment & Plan (05/24/2021 12:12 PM CDT): Weight/BMI is in healthy range. Continue healthy lifestyle to maintain. Cigarette smoker 05/24/2021 04/11/2023 Assessment & Plan (04/15/2022 8:51 PM CDT): Encouraged smoking cessation. Discussed 3 minutes. Reviewed options for assistance with cessation. 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 Pt declines assistance at this time but may contact the office at anytime for further help as they desire. Assessment & Plan (08/20/2021 7:06 PM CDT): Encouraged smoking cessation. Discussed 3 minutes. Reviewed options for assistance with cessation. Reviewed long-term sequela associated with smoking. Pt declines assistance [...] Reviewed options for assistance with cessation. Reviewed long-term sequela associated with smoking. Pt declines assistance at this time but may contact the office at anytime for further help as they desire. Assessment & Plan (05/28/2021 9:54 PM CDT): Encouraged smoking cessation. Discussed 3 minutes. Reviewed options for assistance with cessation. 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 Pt declines assistance at this time but may contact the office at anytime for further help as they desire. Encounters Date Type Department Care Team Description 01/15/2025 7:30 AM CDT Office Visit [address] [place] [id number] Prerna Tan PA BMI 25.0-25.9,adult (Primary Dx); Anxiety; Chronic obstructive pulmonary disease, unspecified COPD type (HCC); Foot pain, right 12/21/2024 Orders Only [address] [place] [address] Prerna Tan PA 12/18/2024 Orders Only [address] [place] [address] Prerna Tan PA CHONG (dyspnea on exertion) (Primary Dx) 12/11/[address] [place] [address] Prerna Tan PA Medical Question/Miscellaneou s 11/18/[address] [place] [address] Prerna Tan PA 11/18/[address] [place] [address] Prerna Tan PA 11/18/2024 Nurse Triage [address] [place] [address] Prerna Tan PA from Last 3 Months Immunizations Immunization Administration Dates Next Due Influenza, Quadrivalent, Spl it, Preservative Free, Intramuscular 10/04/2021 Influenza, Trivalent, Preser vative Free, Intramuscular 07/25/2017 Influenza, Unspecified 10/21/2024(Deferr ed: Patient Refused),10/21/2023(Deferred: Patient Refused),11/21/2022(Deferred: Patient Refused),11/21/2021(Deferred: Patient Refused),10/21/2020(Deferred: Patient Refused) Open Labs (J&J) SARS-CoV-2 Vaccination 04/29/2021 Pneumococcal Conjugate Pcv20 07/01/2024 Tdap 03/21/2021 Surgical History Surgery Date Site/Laterality Comments APPENDECTOMY HYSTERECTOMY COSMETIC SURGERY SPINE SURGERY BLADDER SURGERY FOOT SURGERY KNEE ARTHROSCOPY Bilateral Medical History Medical History Date Comments Allergic rhinitis Anxiety Hypertension Family History Medical History Relation Name Comments Cancer Father Hypertension Father COPD Mother Diabetes Mother Heart disease Mother Relation Name Status Comments Father Alive Mother Social History Tobacco Use Types Packs/Day Years [...] on file Legal Sex Female 12:21 AM ROTOGRAVURE PRESS OPERATOR Gender Identity Not on file Sexual Orientation Not on file Obstetrics History Last Filed Vital Signs Vital Sign Reading Time Taken Comments Blood Pressure 108/80 01/15/2025 7:35 AM CDT Pulse 77 01/15/2025 7:35 AM CDT Temperature 36.5 C (97.7 F) 01/15/2025 7:35 AM CDT Respiratory Rate 18 11/14/2023 9:52 AM ROTOGRAVURE PRESS OPERATOR Oxygen Saturation 97% 01/15/2025 7:35 AM CDT Inhaled Oxygen Concentration - - Weight 70.1 kg (154 lb 9.6 oz) 01/15/2025 7:35 A M CDT Height 165.1 cm (5' 5 ) 01/15/2025 7:35 AM CDT Body Mass Index 25.73 01/15/2025 7:35 AM CDT Plan of Treatment Health Maintenance Due Date Last Done Comments Hepatitis C Screening 1960 Osteoporosis Screening-Bone Density Scan 1960 Hepatitis B Screening 1976 Zoster Vaccine (1 of 2) 2008 Breast Cancer Screening-Mammogram 07/28/2022 07/28/2021 Lung Cancer Screening 06/20/2023 06/20/2022 Covid-19 Vaccine ( season) 2024 04/29/2021 Colon Cancer Screening-Colonoscopy 07/23/2024 07/23/2014 Influenza Vaccine (#1) 2025 10/04/2021, 2016 Postponed from 06/21/2024 (Patient declined, but will receive in the future) Well Visit 65+ 07/01/2025 07/01/2024, 0404/2024, 04/11/2023, Additional history exists Depression Screening 01/15/2026 01/15/2025, 07/01/2024, 03/31/2024, Additional history exists Fall Risk Assessment 01/15/2026 01/15/2025, 02/05/2024, 05/16/2023, Additional history exists DTaP/Tdap/Td Vaccine (2 - Td or Tdap) 03/21/2031 03/21/2021 Pneumococcal vaccine 65+ Completed 07/01/2024 Procedures Procedure Name Priority Date/Time Associated Diagnosis [...] Chest N/A Computed Tomogra phy Prerna MONCADA IM CT PROCEDURES Final Re sult * Screening Mammogram Bilateral W Artemio (07/28/2021) Anatomical Region Laterality Modality Breast Bilateral Mammography Impressions 07/28/2021 BI-RADS Category 2: Benign Findings Routine screening mammography Prerna MONCADA IMG MAMMO PROCEDURES Final Result * HM COLONOSCOPY (07/23/2014) Historical Provider HEALTH MAINTENANCE Final Result from Last 3 Months or Most Recently Relevant to Health Maintenance Insurance [place] [facility] Care Teams Hot Saw Helper Relationship Specialty Start Date End Date Prerna Tan PA [address] [facility] [address] [place] [address] PCP - General Internal Medicine 05/24/21
== END 2025-01-18 08:03 | disposition home or self-care (01) ==
PROVIDERS: PCP Physician Assistant; Visit Provider Physician Assistant
DX: Z12.31 Encounter for screening mammogram for malignant neoplasm of breast (principal); Z78.0 Asymptomatic menopausal state; F17.210 Nicotine dependence, cigarettes, uncomplicated; M85.852 Other specified disorders of bone density and structure, left thigh; M85.851 Other specified disorders of bone density and structure, right thigh
CPT/HCPCS: 77063; 77067; 77080